=== PATIENT | male | born 1985 | race Caucasian/White ===

== ENCOUNTER 2018-08-01 01:34 | Emergency (ER) | payer MEDICAID ==
[~2018-08-01] VITALS: Ht 182.9 cm; Wt 95.5 kg
[2018-08-01 01:39] VITALS: Ht 182.9 cm; Wt 95.5 kg
[2018-08-01] MEDS ORDERED: TENORMIN25 MG (01:40)
[2018-08-01] MEDS ORDERED: PAXIL10 MG PO (01:40)
[2018-08-01] MEDS ORDERED: KLONOPIN0.5 MG PO (01:40)
[2018-08-01] MEDS ORDERED: TENORMIN25 MG PO (03:09)
[2018-08-01] MEDS ORDERED: KLONOPIN1 MG PO (03:09)
[2018-08-01] MEDS ORDERED: PAXIL20 MG PO (03:09)
[2018-08-01 03:19] LABS: BASOPHILS 0.3 % (0-2); EOSINOPHILS 0.6 % (0-7); HEMATOCRIT 44.8 % (42.0-54.0); HEMOGLOBIN 15.4 g/dL (13.5-17.5); IMMATURE GRANULOCYTES 0.3 % (0-5); LYMPHOCYTES 10.8 % (15-50); MCH 26.6 pg (26.0-34.0); MCHC 34.4 g/dL (31.0-37.0); MCV 77.4 fL (80.0-100.0); MEAN PLATELET VOLUME 10.6 fL (7.4-10.4); MONOCYTES 6.6 % (2-11); NEUTROPHILS 81.4 % (40-80); PLATELET COUNT 292 10x3/uL (130-400); RBC 5.79 10x6/uL (4.20-6.10); RDW 14.1 % (11.5-14.5); WBC 11.6 10x3/uL (4.8-10.8)
[2018-08-01 03:33] LABS: ALBUMIN 4.4 g/dL (3.4-5.0); ALKALINE PHOSPHATASE 76 U/L (46-116); ALT (SGPT) 54 U/L (10-68); BILIRUBIN - TOTAL 0.37 mg/dL (0.2-1.3); CALC OSMOLALITY 277 mosm/kg (275-300); CARBON DIOXIDE 26.1 mmol/L (21.0-32.0); CHLORIDE - SERUM 101 mmol/L (98-107); CREATININE - SERUM 1.1 mg/dL (0.6-1.3); GLUCOSE 127 mg/dL (74-106); POTASSIUM - SERUM 3.9 mmol/L (3.5-5.1); PROTEIN - SERUM 8.4 g/dL (6.4-8.2); SODIUM 137 mmol/L (136-145); UREA NITROGEN 18 mg/dL (7-18); eGFR NON AFRICAN AMERICAN 81 mL/min (90-120)
[2018-08-01 04:00] VITALS: BP 120/78
== END 2018-08-01 04:00 | disposition home or self-care (01) ==
LOC: D.ER 01:34
PROVIDERS: Emergency Medicine
DX: F40.01 Agoraphobia with panic disorder (principal)